=== PATIENT | female | born 1940 | race Caucasian/White ===

== ENCOUNTER 2019-07-05 10:35 | Emergency (ER) | payer MEDICARE ==
[~2019-07-05] VITALS: Ht 165.1 cm; Wt 68.2 kg
[2019-07-05 10:39] VITALS: Ht 165.1 cm; Wt 68.2 kg
[2019-07-05] MEDS ORDERED: MEXITIL250 MG PO (10:40)
[2019-07-05] MEDS ORDERED: NORVASC5 MG PO (10:40)
[2019-07-05] MEDS ORDERED: OMEPRAZOLE40 MG PO (10:40)
[2019-07-05] MEDS ORDERED: CORGARD80 MG PO (10:40)
[2019-07-05] MEDS ORDERED: GABAPENTIN100 MG PO (10:40)
[2019-07-05 11:36] LABS: BASOPHILS 0.2 % (0-2); EOSINOPHILS 1.2 % (0-7); HEMATOCRIT 36.9 % (36.0-48.0); HEMOGLOBIN 12.2 g/dL (12-16); IMMATURE GRANULOCYTES 0.1 % (0-5); LYMPHOCYTES 12.4 % (15-50); MCH 28.9 pg (26.0-34.0); MCHC 33.1 g/dL (31.0-37.0); MCV 87.4 fL (80.0-100.0); MEAN PLATELET VOLUME 10.6 fL (7.4-10.4); MONOCYTES 13.3 % (2-11); NEUTROPHILS 72.8 % (40-80); PLATELET COUNT 211 10x3/uL (130-400); RBC 4.22 10x6/uL (4.00-5.40); RDW 14.1 % (11.5-14.5); WBC 10.2 10x3/uL (4.8-10.8)
[2019-07-05 11:46] LABS: ALBUMIN 3.1 g/dL (3.4-5.0); ALKALINE PHOSPHATASE 78 U/L (30-120); ALT (SGPT) 14 U/L (10-68); BILIRUBIN - TOTAL 0.94 mg/dL (0.2-1.3); CALC OSMOLALITY 282 mosm/kg (275-300); CALCIUM 8.8 mg/dL (8.5-10.1); CARBON DIOXIDE 28.6 mmol/L (21.0-32.0); CHLORIDE - SERUM 105 mmol/L (98-107); CREATINE KINASE 31 UL (21-215); CREATININE - SERUM 0.8 mg/dL (0.6-1.3); GLUCOSE 120 mg/dL (74-106); PROTEIN - SERUM 6.8 g/dL (6.4-8.2); SODIUM 142 mmol/L (136-145); UREA NITROGEN 10 mg/dL (7-18); eGFR NON AFRICAN AMERICAN 73 mL/min (90-120)
[2019-07-05 11:51] LABS: APTT 31.4 SECONDS (22.8-39.4); INR 1.14 (0.85-1.17); PROTIME 14.5 SECONDS (11.6-15.0)
[2019-07-05 11:59] LABS: POTASSIUM - SERUM 2.7 mmol/L (3.5-5.1); TROPONIN-I < 0.017 ng/mL (0.000-0.060)
[2019-07-05 12:12] LABS: BACTERIA FEW /hpf (NEGATIVE); BILIRUBIN NEGATIVE (NEGATIVE); EPITHELIAL CELLS RARE /hpf (0-5); GLUCOSE NEGATIVE (NEGATIVE); KETONE NEGATIVE (NEGATIVE); NITRITE NEGATIVE (NEGATIVE); RED CELLS - URINE RARE /hpf (0-5); SPECIFIC GRAVITY 1.015 (1.005-1.020); UROBILINOGEN NORMAL (NORMAL); WHITE CELLS - URINE NSEEN /hpf (NEGATIVE)
[2019-07-05] MEDS ORDERED: ZPAK PO (12:46)
[2019-07-05] MEDS ORDERED: CYCLOBENZAPRINE10 MG PO (12:46)
[2019-07-05] MEDS ORDERED: ACETAMINOPHEN500 M1 PO (12:46)
[2019-07-05 14:35] VITALS: BP 124/76
== END 2019-07-05 14:36 | disposition home or self-care (01) ==
LOC: D.ER 10:35
PROVIDERS: Family Medicine
DX: M54.9 Dorsalgia, unspecified (principal); E87.6 Hypokalemia; I10 Essential (primary) hypertension; Z86.73 Personal history of transient ischemic attack (TIA), and cerebral infarction without residual deficits; K21.9 Gastro-esophageal reflux disease without esophagitis